=== PATIENT | female | born 1975 | race Caucasian/White ===

== ENCOUNTER 2021-05-04 13:53 | Emergency (ER) | payer SELFPAY ==
[~2021-05-04] VITALS: Ht 167.6 cm; Wt 90.9 kg
[~2021-05-04 13:53] MED LIST: ACET1TAB33 PO; ALBU2.5V8 IH; ALPR0.5T PO; ASCO500T4 PO; ASPI-630 PO; ASPI-889 PO; BUPR100T6 PO; BUSP10TA PO; CETI10TA74 PO; DIAZ10TA PO; DICY20TA30 PO; DIVA500T2 PO; ESZO1TAB8 PO; FEXO180T81 PO; FLAX100031 PO; FLUO40CA2 PO; GABA300S PO; HYDR-2155 PO; HYDR12.58 PO; HYDR1TAB13 PO; INSU100C SQ; INSU100V8 SQ; LISI10TA16 PO; LISI1TAB23 PO; LISI1TAB37 PO; LISI30TA4 PO; LORA-52 PO; MOME13HF IH; ONDA4TAB12 PO; ORPH-16 PO; OXYC1TAB15 PO; PANT40TA3 PO; POTA99TA PO; PRAM0.125 PO; PREG150C PO; PREG50CA PO; PREN-14 PO; RANI150C PO; VITA1TAB3 PO; ZOLP10TA PO
[2021-05-04 14:03] VITALS: BP 155/103
[2021-05-04] MEDS ORDERED: HYDR-2759 PO (14:26)
[2021-05-04] MEDS ORDERED: PRED20TA PO (14:26)
[2021-05-04] MEDS ORDERED: HYDROcodone/APAP 5/325MG 1 TAB TABLET PO ONE (14:30)
[2021-05-04] MEDS ORDERED: predniSONE 20 MG TABLET PO ONE (14:30)
--- NOTE | 2021-05-04 14:35 | PHYS DOC ---
Past History Past Medical History: Bipolar, CAD, Cancer, COPD, Depression, Diabetes, Hypertension, [place], Ovarian Cyst, Other Additional Past Medical Histor: RLS Past Surgical History: Hysterectomy Smoking: Cigarettes Alcohol Use: None Drug Use: None General Adult EDM: Chief Complaint: UPPER EXTREMITY INJURY HPI: HPI: 46-year-old female presents with right shoulder pain, arm pain and finger tingling. The patient was working on a construction project with her sister when a board fell onto her upper shoulder and slid down her arm. Since that time she has had tenderness of this area. She has pain with abduction above 90 degrees. She is also having some tingling sensation in her third and fourth digit of the right hand. She tells me that she feels like she has normal range of motion and does not think anything is broken, just sore and painful. She denies hitting her head. She does not complain of any other injuries at this time. Review of Systems: Review of Systems: Constitutional: Denies fever or chills Eyes: Denies change in visual acuity HENT: Denies nasal congestion or sore throat Respiratory: Denies cough or shortness of breath Cardiovascular: Denies chest pain or edema GI: Denies abdominal pain, nausea, vomiting, bloody stools or diarrhea : Denies dysuria Musculoskeletal: Right shoulder pain, forearm pain, finger tingling Integument: Denies rash Neurologic: Denies headache, focal weakness or sensory changes Endocrine: Denies polyuria or polydipsia Lymphatic: Denies swollen glands Psychiatric: Denies depression or anxiety Allergies: Allergies: Allergies Coded Allergies Type Severity Reaction Last Updated Verified ketorolac Allergy Intermediate hives 12/25/15 Yes meperidine Allergy Intermediate 12/25/15 Yes NSAIDS (Non-Steroidal Anti-Inflamma Adverse Reaction Mild 12/25/15 Yes cyclobenzaprine Adverse Reaction Mild 12/25/15 Yes promethazine Adverse Reaction Mild 12/25/15 Yes tramadol Adverse Reaction Mild 12/25/15 Yes Physical Exam: PE: Constitutional: Well developed, well nourished, no acute distress, non-toxic appearance. [] HENT: Normocephalic, atraumatic, bilateral external ears normal, oropharynx moist, no oral exudates, nose normal. [] Eyes: PERRLA, EOMI, conjunctiva normal, no discharge. [] Neck: Normal range of motion, no tenderness, supple, no stridor. [] Cardiovascular: Heart rate regular rhythm, no murmur [] Lungs & Thorax: Bilateral breath sounds clear to auscultation [] Abdomen: Bowel sounds normal, soft, no tenderness, no masses, no pulsatile masses. [] Skin: Warm, dry, no erythema, no rash. [] Back: No tenderness, no CVA tenderness. [] Extremities: Tenderness over the deltoid on the right of the right forearm. Mild ecchymosis of the posterior right forearm. Negative empty can, negative Yergason's. [] Neurologic: Alert and oriented X 3, normal motor function, normal sensory function, no focal deficits noted. [] Psychologic: Affect normal, judgement normal, mood normal. [] Current Patient Data: Vital Signs: Vital Signs Date Time Temp Pulse Resp B/P (MAP) Pulse Ox O2 Delivery O2 Flow Rate FiO2 05/04/21 14:03 97.9 82 16 155/103 98 Room Air EKG: EKG: [] Radiology/Procedures: Radiology/Procedures: [] Heart Score: C/O Chest Pain: N/A Risk Factors: Risk Factors: DM, Current or recent (<one month) smoker, HTN, HLP, family history of CAD, obesity. Risk Scores: Score 0 - 3: 2.5% MACE over next 6 weeks - Discharge Home Score 4 - 6: 20.3% MACE over next 6 weeks - Admit for Clinical Observation Score 7 - 10: 72.7% MACE over next 6 weeks - Early Invasive Strategies Course & Med Decision Making: Course & Med Decision Making Pertinent Labs and Imaging studies reviewed. (See chart for details) The patient's exam is not concerning for fracture. She appears to be developing bruising of the forearm. Her tenderness of the shoulder region is superficial. I think she has contusions that are swelling and compressing on her ulnar nerve. I will give her [place] 5/325, 60 mg prednisone in the ED. I will discharge her with 2 more days of the same medications. She is stable for discharge at this time. The patient has no records in the narcotic tracking database. [] Dragon Disclaimer: Dragon Disclaimer: This electronic medical record was generated, in whole or in part, using a voice recognition dictation system. Departure Departure: Impression: Primary Impression: Contusion of right forearm, initial encounter Additional Impression: Right shoulder pain Disposition: HOME / SELF CARE / HOMELESS Condition: STABLE Referrals: PCP,NO (PCP) Patient Instructions: Shoulder Pain, [id number] Scripts Hydrocodone/Acetaminophen (Hydrocodone-Acetamin 5-325 mg) 1 Each Tablet 1 EACH PO Q4-6HRS PRN for PAIN, #10 TAB Prov: FRANDY VELAZQUEZ DO 05/04/21 Prednisone (PREDNISONE) 20 Mg Tablet 3 TAB PO DAILY for shoulder pain for 2 Days, #6 TAB Prov: FRANDY VELAZQUEZ DO 05/04/21 FRANDY VELAZQUEZ DO May 04, 2021 14:35
== END 2021-05-04 14:51 | disposition home or self-care (01) ==
LOC: ER 13:53
DX: S50.11XA Contusion of right forearm, initial encounter (principal); M25.511 Pain in right shoulder; F31.9 Bipolar disorder, unspecified; I25.10 Atherosclerotic heart disease of native coronary artery without angina pectoris; J44.9 Chronic obstructive pulmonary disease, unspecified; E11.9 Type 2 diabetes mellitus without complications; I10 Essential (primary) hypertension; I25.2 Old myocardial infarction; F17.210 Nicotine dependence, cigarettes, uncomplicated; Z88.8 Allergy status to other drugs, medicaments and biological substances; Z88.6 Allergy status to analgesic agent; W20.8XXA Other cause of strike by thrown, projected or falling object, initial encounter; Y93.89 Activity, other specified; Y92.89 Other specified places as the place of occurrence of the external cause; Y99.8 Other external cause status
CPT/HCPCS: 99283; J7512

== ENCOUNTER 2021-05-08 23:10 | Emergency (ER) | payer BC ==
[~2021-05-08 23:10] MED LIST changes: +HYDR-2759 PO; +PRED20TA PO
--- NOTE | 2021-05-09 00:37 | PHYS DOC ---
Past History Past Medical History: Arthritis, Bipolar, CAD, Cancer, COPD, Depression, Diabetes, Fibromyalgia, Hypertension, [place], Ovarian Cyst, Other Additional Past Medical Histor: RLS Past Surgical History: Hysterectomy, Other Smoking: Cigarettes Alcohol Use: None Drug Use: None General Adult EDM: Chief Complaint: UPPER EXTREMITY PAIN HPI: HPI: "I was in process of caring a roll of linoleum,,.. And pulled a muscle in this right arm....The roll was very heavy..and now my arm is sore.." Patient is a 46 year old female who presents with above hx and complaints of muscle strain in arm. Patient states she injured her arm carrying a heavy roll of linoleum. At the time felt like she pulled or strained some muscles. Patient distal neurovascular intact. Cap refill and right fingers is equal to left fingers. Patient is right-hand dominant. Cap refill is equal to left hand. Patient localizes area pain primarily to right forearm. Patient denies any shortness of breath, patient denies any chest pain, patient denies any fever or chills. Patient complains of pain is keeping her up tonight and requesting a prescription for a narcotic med. Patient has past medical history of bipolar disorder, COPD, coronary artery disease, diabetes, chronic pain, sciatica, tobacco use, and in the past frequent ED visits for pain complaints. Patient does continue to smoke. Review of Systems: Review of Systems: Constitutional: Denies fever or chills Eyes: Denies change in visual acuity HENT: Denies nasal congestion or sore throat Respiratory: Denies cough or shortness of breath Cardiovascular: Denies chest pain or edema GI: Denies abdominal pain, nausea, vomiting, bloody stools or diarrhea : Denies dysuria Musculoskeletal: Complains of right forearm pain. Integument: Denies rash Neurologic: Denies headache, focal weakness or sensory changes Endocrine: Denies polyuria or polydipsia Lymphatic: Denies swollen glands Psychiatric: Denies depression or anxiety Family History: Family History: There is family history of coronary artery disease and cancer but both of father and mother Current Medications: Current Meds: See nursing for home meds Allergies: Allergies: Allergies Coded Allergies Type Severity Reaction Last Updated Verified ketorolac Allergy Intermediate hives 12/25/15 Yes meperidine Allergy Intermediate 12/25/15 Yes NSAIDS (Non-Steroidal Anti-Inflamma Adverse Reaction Mild 12/25/15 Yes cyclobenzaprine Adverse Reaction Mild 12/25/15 Yes promethazine Adverse Reaction Mild 12/25/15 Yes tramadol Adverse Reaction Mild 12/25/15 Yes Physical Exam: PE: Constitutional: no acute distress, non-toxic appearance. [] HENT: Normocephalic, atraumatic, bilateral external ears normal, oropharynx moist, no oral exudates, nose normal. [] Eyes: PERRLA, EOMI, conjunctiva normal, no discharge. [] Neck: Normal range of motion, no tenderness, supple, no stridor. [] Cardiovascular:Heart rate regular rhythm, no murmur [] Lungs & Thorax: Bilateral breath sounds equal apex with scattered wheezes on auscultation [] Abdomen: Bowel sounds normal, soft, no tenderness, no masses, no pulsatile masses. Surgery scar Skin: Warm, dry, no erythema, no rash. Tattoos Back: No tenderness, no CVA tenderness. [] Extremities: No tenderness, no cyanosis, no clubbing, ROM intact, no edema. Except for the complaints of right forearm pain Neurologic: Alert and oriented X 3, moves extremities on request, has distal sensory,, no focal deficits noted. [] DTRs +2 brachial Psychologic: Affect anxious, judgement normal, mood normal. [] EKG: EKG: [] Radiology/Procedures: Radiology/Procedures: [] Heart Score: C/O Chest Pain: N/A Risk Factors: Risk Factors: DM, Current or recent (<one month) smoker, HTN, HLP, family history of CAD, obesity. Risk Scores: Score 0 - 3: 2.5% MACE over next 6 weeks - Discharge Home Score 4 - 6: 20.3% MACE over next 6 weeks - Admit for Clinical Observation Score 7 - 10: 72.7% MACE over next 6 weeks - Early Invasive Strategies Course & Med Decision Making: Course & Med Decision Making Pertinent Labs and Imaging studies reviewed. (See chart for details) Patient to rest right forearm. Wear Fareed wrap. Use ice packs. Take Tylenol as needed for pain. Follow-up primary care. Patient was given 2 Percocets while in the emergency department. Pt. was upset that she was not receiving a narc otic prescription for discharge home. Impression: 1. Right arm sprain strain 2. Appeared to be exhibiting narcotic seeking behaviors 3. Tobacco Use. [] Dragon Disclaimer: Dragon Disclaimer: This electronic medical record was generated, in whole or in part, using a voice recognition dictation system. Departure Departure: Referrals: PCP,NO (PCP) [place] Disclaimer This chart was dictated in whole or in part using Voice Recognition software in a busy, high-work load, and often noisy Emergency Department environment. It may contain unintended and wholly unrecognized errors or omissions. MARIA ELENA BAI MD May 09, 2021 00:37
[2021-05-09] MEDS ORDERED: oxyCODONE/APAP 5/325 1 TAB TABLET PO ONE (01:30)
[2021-05-09] MEDS ORDERED: ORPHENADRINE CITRATE 60 MG/2 ML VIAL. IM ONE (02:00)
== END 2021-05-09 01:44 | disposition home or self-care (01) ==
LOC: ER 23:10
DX: S56.911A Strain of unspecified muscles, fascia and tendons at forearm level, right arm, initial encounter (principal); M19.90 Unspecified osteoarthritis, unspecified site; F31.9 Bipolar disorder, unspecified; I25.10 Atherosclerotic heart disease of native coronary artery without angina pectoris; J44.9 Chronic obstructive pulmonary disease, unspecified; E11.9 Type 2 diabetes mellitus without complications; M79.7 Fibromyalgia; I10 Essential (primary) hypertension; I25.2 Old myocardial infarction; F17.210 Nicotine dependence, cigarettes, uncomplicated; Z88.6 Allergy status to analgesic agent; Z88.8 Allergy status to other drugs, medicaments and biological substances; X50.9XXA Other and unspecified overexertion or strenuous movements or postures, initial encounter; Y93.89 Activity, other specified; Y92.89 Other specified places as the place of occurrence of the external cause; Y99.8 Other external cause status
CPT/HCPCS: 96372; 99283; J2360

== ENCOUNTER 2021-05-21 03:34 | Emergency (ER) | payer BC ==
[~2021-05-21] VITALS: Ht 167.6 cm; Wt 102.6 kg
[2021-05-21] MEDS ORDERED: PRAM0.255 PO (04:01)
[2021-05-21] MEDS ORDERED: VITA25006 PO (04:01)
[2021-05-21] MEDS ORDERED: iron infusions (04:01)
[2021-05-21] MEDS ORDERED: RIZA10TA PO (04:01)
[2021-05-21] MEDS ORDERED: [UNRECOGNIZED DRUG - OTHER] (04:01)
[2021-05-21 04:24] VITALS: BP 151/65
[2021-05-21] MEDS ORDERED: HYDROcodone/APAP 7.5/325MG 1 TAB TABLET PO ONE (04:30)
[2021-05-21] MEDS ORDERED: diphenhydrAMINE 50 MG/ML VIAL IVP ONE (04:30)
[2021-05-21] MEDS ORDERED: diphenhydrAMINE HCL 25 MG CAPSULE PO ONE (04:45)
--- NOTE | 2021-05-21 04:48 | PHYS DOC ---
Past History Past Medical History: Arthritis, Bipolar, CAD, Cancer, COPD, Depression, Diabetes, Fibromyalgia, Hypertension, [place], Ovarian Cyst, Other Additional Past Medical Histor: RLS Past Surgical History: Hysterectomy, Other Smoking: Cigarettes Alcohol Use: None Drug Use: None General Adult EDM: Chief Complaint: MECHANICAL FALL HPI: HPI: 46-year-old female presents with right shoulder pain. The patient was working on a construction project when she stepped onto a board that flipped over and she fell onto floor joists one hit her in the right upper thigh and the other one hit her right shoulder all of her weight landed on these two areas. She is still able to walk and move her arm but it is painful. She has no other complaints this time. Review of Systems: Review of Systems: Constitutional: Denies fever or chills Eyes: Denies change in visual acuity HENT: Denies nasal congestion or sore throat Respiratory: Denies cough or shortness of breath Cardiovascular: Denies chest pain or edema GI: Denies abdominal pain, nausea, vomiting, bloody stools or diarrhea : Denies dysuria Musculoskeletal: Right thigh pain and right shoulder pain Integument: Denies rash Neurologic: Denies headache, focal weakness or sensory changes Endocrine: Denies polyuria or polydipsia Lymphatic: Denies swollen glands Psychiatric: Denies depression or anxiety Current Medications: Current Meds: Current Medications Medications (Trade) Dose Ordered Sig/Freya Start Time Stop Time Status Last Admin Dose Admin Acetaminophen/ Hydrocodone Bitart (Lortab 7.5/325) 1 tab 1X ONCE 05/21/21 04:30 05/21/21 04:31 DC Diphenhydramine HCl (Benadryl) 50 mg 1X ONCE 05/21/21 04:45 05/21/21 04:46 Allergies: Allergies: Allergies Coded Allergies Type Severity Reaction Last Updated Verified ketorolac Allergy Intermediate hives 12/25/15 Yes meperidine Allergy Intermediate 12/25/15 Yes latex Allergy Unknown 05/21/21 Yes NSAIDS (Non-Steroidal Anti-Inflamma Adverse Reaction Mild 12/25/15 Yes cyclobenzaprine Adverse Reaction Mild 12/25/15 Yes promethazine Adverse Reaction Mild 12/25/15 Yes tramadol Adverse Reaction Mild 12/25/15 Yes Uncoded Allergies Type Severity Reaction Last Updated Verified meat Allergy Severe 05/21/21 Physical Exam: PE: Constitutional: Well developed, well nourished, no acute distress, non-toxic appearance. [] HENT: Normocephalic, atraumatic, bilateral external ears normal, oropharynx moist, no oral exudates, nose normal. [] Eyes: PERRLA, EOMI, conjunctiva normal, no discharge. [] Neck: Normal range of motion, no tenderness, supple, no stridor. [] Cardiovascular: Heart rate regular rhythm, no murmur [] Lungs & Thorax: Bilateral breath sounds clear to auscultation [] Abdomen: Bowel sounds normal, soft, no tenderness, no masses, no pulsatile masses. [] Skin: Mild ecchymosis of the right upper thigh. [] Back: No tenderness, no CVA tenderness. [] Extremities: Small area of ecchymosis of the anterior right upper arm, no obvious deformity. [] Neurologic: Alert and oriented X 3, normal motor function, normal sensory function, no focal deficits noted. [] Psychologic: Affect normal, judgement normal, mood dramatic. [] Current Patient Data: Vital Signs: Vital Signs Date Time Temp Pulse Resp B/P (MAP) Pulse Ox O2 Delivery O2 Flow Rate FiO2 05/21/21 04:24 97.8 94 28 151/65 (93) 98 Room Air EKG: EKG: [] Radiology/Procedures: Radiology/Procedures: [] Heart Score: C/O Chest Pain: N/A Risk Factors: Risk Factors: DM, Current or recent (<one month) smoker, HTN, HLP, family history of CAD, obesity. Risk Scores: Score 0 - 3: 2.5% MACE over next 6 weeks - Discharge Home Score 4 - 6: 20.3% MACE over next 6 weeks - Admit for Clinical Observation Score 7 - 10: 72.7% MACE over next 6 weeks - Early Invasive Strategies Course & Med Decision Making: Course & Med Decision Making Pertinent Labs and Imaging studies reviewed. (See chart for details) I have given the patient 1 [place] 7.5/325 in the ER. I do not doubt that this is painful, but I think the patient is being overly dramatic. Her pain is a bit out of proportion to exam. Shoulder x-ray is negative for fracture. Leg and hip x-ray is not necessary. I have already given her a narcotic prescription within the last 30 days. I do not believe that these injuries warrant that level of medication. She is stable for discharge at this time. She can use Tylenol and ibuprofen at home. [] Babita Disclaimer: Babita Disclaimer: This electronic medical record was generated, in whole or in part, using a voice recognition dictation system. Departure Departure: Impression: Primary Impression: Fall from slip, trip, or stumble Additional Impressions: Shoulder pain Leg pain, superior Disposition: 01 HOME / SELF CARE / HOMELESS Condition: STABLE Referrals: PCP,GIORGIO (PCP) Patient Instructions: Contusion, [id number] FRANDY VELAZQUEZ DO May 21, 2021 04:48
--- NOTE | 2021-05-21 05:24 | RAD ---
EXAM: RIGHT SHOULDER 3 VIEWS. HISTORY: Fall, pain. COMPARISON: None. FINDINGS: No fractures are identified. Glenohumeral joint spaces and alignment are maintained. Acromi oclavicular joint spaces and alignment are maintained. IMPRESSION: 1. No fracture or malalignment. Electronically signed by: Edel Givens MD (05/21/2021 5:22 AM) [facility]
== END 2021-05-21 04:59 | disposition home or self-care (01) ==
LOC: ER 03:34
DX: S40.021A Contusion of right upper arm, initial encounter (principal); M79.651 Pain in right thigh; J44.9 Chronic obstructive pulmonary disease, unspecified; E11.9 Type 2 diabetes mellitus without complications; F17.210 Nicotine dependence, cigarettes, uncomplicated; Z90.710 Acquired absence of both cervix and uterus; W18.00XA Striking against unspecified object with subsequent fall, initial encounter; Y93.89 Activity, other specified; Y92.89 Other specified places as the place of occurrence of the external cause; Y99.8 Other external cause status
CPT/HCPCS: 73030; 99283; Q0163

== ENCOUNTER 2021-06-03 03:38 | Emergency (ER) | payer BC ==
[~2021-06-03] VITALS: Ht 167.6 cm; Wt 100.0 kg
[~2021-06-03 03:38] MED LIST changes: +PRAM0.255 PO; +RIZA10TA PO; +VITA25006 PO; +[UNRECOGNIZED DRUG - OTHER]; +iron infusions
--- NOTE | 2021-06-03 03:43 | PHYS DOC ---
Past History Past Medical History: Arthritis, Bipolar, CAD, Cancer, COPD, Depression, Diabetes, Fibromyalgia, Hypertension, [place], Ovarian Cyst, Other Additional Past Medical Histor: RLS; Lymes dx; barretts esophagus; myocard ischem;gastroparesis Past Surgical History: Hysterectomy, Tubal ligation, Other Additional Past Surgical Histo: carpal tunnel; cystectomy of liver Smoking: Cigarettes Alcohol Use: None Drug Use: None General Adult HPI: HPI: "....I came down wrong on my Rt. ankle and it feel s like I broke it.. " Patient is a 46 year old female who presents with above hx and complaints right ankle pain after inversion type injury. Patient localizes pain to bilateral malleolus is. Has negative foot squeeze. Does have some swelling of medial malleolus. Mild anterior draw on stressing of ankle. Patient denies any upper leg tenderness. No recent travel. No specific ill contacts. Patient has known medical history of chronic pain and fibromyalgia, arthritis, bipolar disorder, coronary artery disease, cancer, COPD, depression, diabetes, hypertension, myocardial infarction, ovarian cyst, tobacco abuse, RLS, and polysubstance abuse. She has multiple visits to the ED for narcotic meds. Patient seen in the ER as recent as 05/21/2021. No specific history immunosuppression. No history of recent travel. History of civic ill contacts. Review of Systems: Review of Systems: Constitutional: Denies fever or chills Eyes: Denies change in visual acuity HENT: Denies nasal congestion or sore throat Respiratory: Denies cough or shortness of breath Cardiovascular: Denies chest pain or edema GI: Denies abdominal pain, nausea, vomiting, bloody stools or diarrhea : Denies dysuria Musculoskeletal: Complains of right ankle pain Integument: Denies rash Neurologic: Denies headache, focal weakness or sensory changes Endocrine: Denies polyuria or polydipsia Lymphatic: Denies swollen glands Psychiatric: Denies depression or anxiety Family History: Family History: Noncontributory to presentation Current Medications: Current Meds: See nursing for home medications Allergies: Allergies: Allergies Coded Allergies Type Severity Reaction Last Updated Verified ketorolac Allergy Intermediate hives 12/25/15 Yes meperidine Allergy Intermediate 12/25/15 Yes latex Allergy Unknown 05/21/21 Yes NSAIDS (Non-Steroidal Anti-Inflamma Adverse Reaction Mild 12/25/15 Yes cyclobenzaprine Adverse Reaction Mild 12/25/15 Yes promethazine Adverse Reaction Mild 12/25/15 Yes tramadol Adverse Reaction Mild 12/25/15 Yes Uncoded Allergies Type Severity Reaction Last Updated Verified meat Allergy Severe 05/21/21 Physical Exam: PE: Constitutional: Moderate acute distress, non-toxic appearance. [] HENT: Normocephalic, atraumatic, bilateral external ears normal, oropharynx moist, no oral exudates, nose normal. [] Eyes: PERRLA, EOMI, conjunctiva normal, no discharge. [] Neck: Normal range of motion, no tenderness, supple, no stridor. [] Cardiovascular:Heart rate regular rhythm, no murmur [] Lungs & Thorax: Bilateral breath sounds to apex scattered wheezes auscultation [] Abdomen: Bowel sounds normal, soft, no tenderness, no masses, no pulsatile masses. Surgery scars. Skin: Warm, dry, no erythema, no rash. [] Back: No tenderness, no CVA tenderness. [] Extremities: No tenderness, no cyanosis, no clubbing, ROM intact, no edema. Except findings right ankle as per HPI Neurologic: Alert and oriented X 3, normal motor function, normal sensory function, no focal deficits noted. [] Twitchy. DTRs +2 patella and brachial. Psychologic: Affect anxious, judgement normal, mood normal. [] EKG: EKG: [] Radiology/Procedures: Radiology/Procedures: [][place] [id number] IMAGING REPORT Signed PATIENT: CECILLE MILLER ACCOUNT: [id number] : 1975 LOCATION: ER AGE: 46 SEX: F EXAM STATUS: REG ER ORD. PHYSICIAN: MARIA ELENA BAI MD REASON: INJURY PROCEDURE: ANKLE RIGHT 3V Study: XR EXAM OF ANKLE_RIGHT 3VIEWS Indication: Injury. Comparison: 05/31/2014 Findings: No acute fracture or malalignment at the ankle. Mild degenerative spurring at the anterior more so than posterior margins of the tibial plafond. Ankle joint space height is maintained. Ossific fragment at the dorsum of the navicular adjacent to the talonavicular joint appears chronic with corticated margins no acute fracture is identified throughout the partially assessed foot. Mildly prominent soft tissues at the lateral slightly more so than medial ankle as well as at the dorsum of the talonavicular joint and medial hindfoot. Impression: 1. No acute fracture or traumatic malalignment. 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 2. Mild nonspecific soft tissue prominence at the ankle and midfoot/hindfoot. Electronically signed by: KAREN ULRICH MD (06/03/2021 4:35 AM) [facility] DICTATED AND SIGNED BY: KAREN ULRICH MD DATE: 06/03/21 0432 CC: MARIA ELENA BAI MD; PCP,NO ~MTH0 0 Heart Score: C/O Chest Pain: N/A Risk Factors: Risk Factors: DM, Current or recent (<one month) smoker, HTN, HLP, family history of CAD, obesity. Risk Scores: Score 0 - 3: 2.5% MACE over next 6 weeks - Discharge Home Score 4 - 6: 20.3% MACE over next 6 weeks - Admit for Clinical Observation Score 7 - 10: 72.7% MACE over next 6 weeks - Early Invasive Strategies Course & Med Decision Making: Course & Med Decision Making Patient elevate ankle. Ice packs as needed. Wear splint. Use crutches. Follow-up primary care. Tylenol for pain. Follow-up primary care. Follow-up [facility] orthopedics Pertinent Labs and Imaging studies reviewed. (See chart for details) Impression: 1. Right ankle sprain 2. Hx. Chronic Pain 3. History of narcotic seeking behaviors [] Dragon Disclaimer: Dragon Disclaimer: This electronic medical record was generated, in whole or in part, using a voice recognition dictation system. Departure Departure: Referrals: PCP,NO (PCP) [place] Disclaimer This chart was dictated in whole or in part using Voice Recognition software in a busy, high-work load, and often noisy Emergency Department environment. It may contain unintended and wholly unrecognized errors or omissions. MARIA ELENA BAI MD Jun 03, 2021 03:43
[2021-06-03 03:45] VITALS: BP 140/63
--- NOTE | 2021-06-03 04:37 | RAD ---
Study: XR EXAM OF ANKLE_RIGHT 3VIEWS Indication: Injury. Comparison: 05/31/2014 Findings: No acute fracture or malalignment at the ankle. Mild degenerative spurring at the anterior more so th an posterior margins of the tibial plafond. Ankle joint space height is maintained. Ossific fragment at the dorsum of the navicular adjacent to the talonavicular joint appears chronic w ith corticated margins no acute fracture is identified throughout the partially assessed foot. Mildly prominent soft tissues at the lateral slightly more so than medial ankle as well as at the dorsum of the talonavicular joint and medial hindfoot. Impression: 1. No acute fracture or traumatic malalignment. Chronic ossific fragment at the dorsum of the navicul ar. 2. Mild nonspecific soft tissue prominence at the ankle and midfoot/hindfoot. Electronically signed by: KAREN ULRICH MD (06/03/2021 4:35 AM) [facility]
[2021-06-03] MEDS ORDERED: ACETAMINOPHEN 500 MG TABLET PO ONE (05:30)
== END 2021-06-03 05:39 | disposition home health service (06) ==
LOC: ER 03:38
DX: S93.401A Sprain of unspecified ligament of right ankle, initial encounter (principal); G89.29 Other chronic pain; M19.90 Unspecified osteoarthritis, unspecified site; I25.10 Atherosclerotic heart disease of native coronary artery without angina pectoris; J44.9 Chronic obstructive pulmonary disease, unspecified; F31.9 Bipolar disorder, unspecified; E11.9 Type 2 diabetes mellitus without complications; M79.7 Fibromyalgia; I10 Essential (primary) hypertension; I25.2 Old myocardial infarction; F17.210 Nicotine dependence, cigarettes, uncomplicated; Z88.8 Allergy status to other drugs, medicaments and biological substances; Z91.040 Latex allergy status; Z88.6 Allergy status to analgesic agent; X50.9XXA Other and unspecified overexertion or strenuous movements or postures, initial encounter; Y93.89 Activity, other specified; Y92.89 Other specified places as the place of occurrence of the external cause; Y99.8 Other external cause status
CPT/HCPCS: 29515; 73610; 99283